=== PATIENT | female | born 1990 | race Two or more races ===

== ENCOUNTER 2025-02-07 15:48 | Emergency (ER) | payer MEDICAID ==
[~2025-02-07] VITALS: Ht 162.6 cm; Wt 80.8 kg
[2025-02-07 19:23] VITALS: BP 125/106; PULSE 92; RESP 16; TEMP 98.4; O2SAT 100
[2025-02-07] MEDS ORDERED: HYDR-3682 PO (19:24)
[2025-02-07] MEDS ORDERED: SERT-206 PO (19:24)
--- NOTE | 2025-02-07 19:27 | ED.PDOC ---
Psychiatric HPI Comments 34-year-old female presents to the ED chief complaint medication refill. Patient states she has a follow up appointment with her psychiatrist and for 10 days has been off her medication for proximally three weeks. Reports Zoloft 25- 50 mg once daily and Xanax as needed for anxiety. Patient states some mild depression and anxiety denies HI SI LI SA visual or auditory hallucinations at this time Chief Complaint: Mental Health Time Seen by MD: 18:12 Primary Care Provider: MCKENNA Reviewed Notes: Nurses Notes, Medications, Allergies Information Source: Patient Mode of Arrival: Ambulatory Past Medical History PAST MEDICAL HISTORY: Anxiety Surgical History: Denies all surgeries CYANIDE POT TENDER History: Denies all CYANIDE POT TENDER Hx Family History Family History: Unknown Social History Smoker: Non-Smoker Alcohol: Denies ETOH Use Drugs: Denies Drug Use Lives In: Home All Other Systems: Reviewed and Negative (SEE HPI) Physical Exam General Appearance: No Apparent Distress, Normal HEENT: Pharynx Normal Neck: Full Range of Motion, Non-Tender Respiratory: Lungs Clear, No Respiratory Distress, Normal Breath Sounds Cardiovascular: No Edema, No JVD, No Murmur, No Gallop, Normal Peripheral Pulses, Regular Rate/Rhythm Breast Exam: Deferred Gastrointestinal: No Organomegaly, Non Tender, No Pulsatile Mass, Normal Bowel Sounds, Soft Genitalia: Deferred Pelvic: Deferred Rectal: Deferred Extremities: Normal range of motion, No pedal edema Musculoskeletal : Apperance: Normal Neurologic: Alert, No Motor Deficits, Normal Affect, Normal Mood, No Sensory Deficits Cerebellar Function: Normal Reflexes: NOT DONE Skin: Dry, Normal Color, Warm Lymphatic: No Adenopathy Was a procedure done? Was a procedure done?: No Psych Differential Dx Psych. Differential Dx: Anxiety, Depression, Hopeless, Panic Disorder, Sleepless X-Ray, Labs, Meds, VS Vital Signs Date Time Temp Pulse Resp B/P (MAP) Pulse Ox O2 Delivery O2 Flow Rate FiO2 02/07/25 15:50 97.9 103 20 124/74 98 97.9 X-Ray, Labs, Meds, VS Comment FOLLOW UP WITH YOUR PSYCHIATRY APPOINTMENT. RETURN TO THE ER FOR ANY CONCERNS OR NEW ONSET OF SYMPTOMS. Time of 1ST Reevaluation: 18:12 Reevaluation 1ST: Unchanged Time of 2ND Reevaluation: 19:25 Reevaluation 2ND: Improved Patient Education/Counseling: Diagnosis, Treatment, Need For Follow Up Family Education/Counseling: No Family Present Departure 1 Departure Time of Disposition: 19:23 Impression: Primary Impression: Depression with anxiety Disposition: 01 HOME / SELF CARE / HOMELESS Condition: Stable e-Prescriptions Hydroxyzine Hcl (Hydroxyzine Hcl) 25 Mg Tab 1 TAB PO TID PRN for 14 Days, #42 TAB Prov: BRAD WHITEHEAD 02/07/25 Sertraline Hcl (Sertraline Hcl) 50 Mg Tab 1 TAB PO DAILY for 30 Days, #30 TAB Prov: BRAD WHITEHEAD 02/07/25 Discharged With: Self Critical Care Note Critical Care Time?: No Stability Stability form required: No BRAD WHITEHEAD Feb 07, 2025 19:27
== END 2025-02-07 19:41 | disposition home or self-care (01) ==
LOC: ER 15:48
DX: F41.9 Anxiety disorder, unspecified (principal); F32.A Depression, unspecified; Z76.0 Encounter for issue of repeat prescription; Z79.899 Other long term (current) drug therapy